=== PATIENT | male | born 1960 | race Caucasian/White ===

== ENCOUNTER 2017-04-13 15:26 | Emergency (ER) | payer SELFPAY ==
[~2017-04-13] VITALS: Ht 182.9 cm; Wt 81.6 kg
[2017-04-13 15:26] VITALS: BP 177/101
[2017-04-13 15:56] LABS: BASO % 1 % (0-3); EOS % 1 % (0-3); HEMATOCRIT 42.8 % (39.0-53.0); HEMOGLOBIN 14.8 g/dL (13.0-17.5); LYMPH # 0.9 x10^3/uL (1.0-4.8); LYMPH % 26 % (24-48); MEAN CORPUSCULAR HEMOGLOBIN 32 pg (25-35); MEAN CORPUSCULAR HGB CONC 35 g/dL (31-37); MEAN CORPUSCULAR VOLUME 92 fL (79-100); MONO % 10 % (0-9); NEUT % 62 % (31-73); PLATELET COUNT 127 x10^3/uL (140-400); RED BLOOD COUNT 4.66 x10^6/uL (4.30-5.70); RED CELL DISTRIBUTION WIDTH 16.1 % (11.5-14.5); WHITE BLOOD COUNT 3.6 x10^3/uL (4.0-11.0)
[2017-04-13] MEDS ORDERED: IV NORMAL SALINE 1000ML BAG 1,000 ML IV ONE (16:00)
--- NOTE | 2017-04-13 16:11 | PHYS DOC ---
Past Medical History Past Medical History: Alcoholism, COPD, Diabetes-Type II, High Cholesterol, Hypertension Past Surgical History: No Surgical History Alcohol Use: Heavy Drug Use: None Adult General Chief Complaint Chief Complaint: ALCOHOL INTOXICATION HPI HPI Patient is a 56 year old male who presents by EMS for alcohol intoxication seeking alcohol rehabilitation/detox. He acknowledges psychosocial stressors of drinking and wants to quit. His last drink was this a.m. He notes prior detox attempts. He denies other complaints at this time. Review of Systems Review of Systems Constitutional: Denies fever or chills [] Eyes: Denies change in visual acuity, redness, or eye pain [] HENT: Denies nasal congestion or sore throat [] Respiratory: Denies cough or shortness of breath [] Cardiovascular: No additional information not addressed in HPI [] GI: Denies abdominal pain, nausea, vomiting, bloody stools or diarrhea [] : Denies dysuria or hematuria [] Musculoskeletal: Denies back pain or joint pain [] Integument: Denies rash or skin lesions [] Neurologic: Denies headache, focal weakness or sensory changes [] Endocrine: Denies polyuria or polydipsia [] Current Medications Current Medications Current Medications Medications (Trade) Dose Ordered Sig/Kalyn Start Time Stop Time Status Last Admin Dose Admin Sodium Chloride 1,000 ml @ 1,000 mls/hr 1X ONCE 04/13/17 16:00 04/13/17 16:59 DC 04/13/17 16:09 1,000 MLS/HR Allergies Allergies Allergies Coded Allergies Type Severity Reaction Last Updated Verified No Known Drug Allergies 04/13/17 No Physical Exam Physical Exam Constitutional: Well developed, well nourished, no acute distress, non-toxic appearance. [] HENT: Normocephalic, atraumatic, bilateral external ears normal, oropharynx moist, no oral exudates, nose normal. [] Eyes: PERRLA, EOMI, conjunctiva normal, no discharge. [] Neck: Normal range of motion, supple. [] Cardiovascular:Heart rate regular rhythm [] Lungs & Thorax: Bilateral breath sounds clear to auscultation [] Abdomen: Bowel sounds normal, soft, no tenderness. [] Skin: Warm, dry, no erythema, no rash. [] Back: Normal ROM. [] Extremities: No tenderness, ROM intact, no edema. [] Neurologic: Alert and oriented X 3, normal motor function, normal sensory function, no focal deficits noted. [] Psychologic: Affect normal, judgement normal, mood normal. [] Current Patient Data Vital Signs Vital Signs Date Time Temp Pulse Resp B/P (MAP) Pulse Ox O2 Delivery O2 Flow Rate FiO2 04/13/17 15:26 98.6 111 20 177/101 (126) 92 Room Air 98.6 Lab Values Laboratory Tests Test 04/13/17 15:30 04/13/17 16:30 White Blood Count 3.6 x10^3/uL (4.0-11.0) L Red Blood Count 4.66 x10^6/uL (4.30-5.70) Hemoglobin 14.8 g/dL (13.0-17.5) Hematocrit 42.8 % (39.0-53.0) Mean Corpuscular Volume 92 fL (79-100) Mean Corpuscular Hemoglobin 32 pg (25-35) Mean Corpuscular Hemoglobin Concent 35 g/dL (31-37) Red Cell Distribution Width 16.1 % (11.5-14.5) H Platelet Count 127 x10^3/uL (140-400) L Neutrophils (%) (Auto) 62 % (31-73) Lymphocytes (%) (Auto) 26 % (24-48) Monocytes (%) (Auto) 10 % (0-9) H Eosinophils (%) (Auto) 1 % (0-3) Basophils (%) (Auto) 1 % (0-3) Neutrophils # (Auto) 2.3 x10^3uL (1.8-7.7) Lymphocytes # (Auto) 0.9 x10^3/uL (1.0-4.8) L Monocytes # (Auto) 0.4 x10^3/uL (0.0-1.1) Eosinophils # (Auto) 0.0 x10^3/uL (0.0-0.7) Basophils # (Auto) 0.0 x10^3/uL (0.0-0.2) Sodium Level 136 mmol/L (136-145) Potassium Level 3.6 mmol/L (3.5-5.1) Chloride Level 94 mmol/L (98-107) L Carbon Dioxide Level 25 mmol/L (21-32) Anion Gap 17 (6-14) H Blood Urea Nitrogen 18 mg/dL (8-26) Creatinine 1.1 mg/dL (0.7-1.3) Estimated GFR (Cockcroft-Gault) 69.0 Glucose Level 186 mg/dL (70-99) H Calcium Level 8.7 mg/dL (8.5-10.1) Ethyl Alcohol Level 288 mg/dL (0-10) H Urine Opiates Screen Neg (NEG) Urine Methadone Screen Neg (NEG) Urine Barbiturates Neg (NEG) Urine Phencyclidine Screen Neg (NEG) Urine Amphetamine/Methamphetamine Neg (NEG) Urine Benzodiazepines Screen Neg (NEG) Urine Cocaine Screen Neg (NEG) Urine Cannabinoids Screen Neg (NEG) Urine Ethyl Alcohol Pos (NEG) Laboratory Tests 04/13/17 15:30 Laboratory Tests 04/13/17 15:30 Course & Med Decision Making Course & Med Decision Making Pertinent Labs and Imaging studies reviewed. (See chart for details) Other than elevated alcohol level, laboratory evaluation is unremarkable. PAT has seen and evaluated him. There are no detox beds available at this time. Resources have been provided to follow-up with detox facilities tomorrow. He will be prescribed Librium in anticipation of detox facility admission for alcohol withdrawal. Instructed him not to use this prescription outside of detox facility. Return precautions given. He understands and agrees with plan. Dragon Disclaimer Dragon Disclaimer This electronic medical record was generated, in whole or in part, using a voice recognition dictation system. Departure Departure Impression: Primary Impression: Alcohol intoxication Disposition: 01 HOME, SELF-CARE Condition: STABLE Referrals: NO PCP (PCP) Patient Instructions: Alcohol Intoxication, [id number] Additional Instructions: You have been supplied resources for substance abuse facility. Please follow up with substance abuse facility for help with alcohol detox. Take Librium at alcohol detox facility, otherwise decrease your alcohol intake gradually. Follow -up with your primary care doctor otherwise. Return for any concerns. Scripts Chlordiazepoxide Hcl (CHLORDIAZEPOXIDE HCL) 10 Mg Capsule 10 MG PO QID Y for ALCOHOL WITHDRAWAL, #12 CAP Prov: Bernardino CALZADA MD 04/13/17 Problem Qualifiers Primary Impression: Alcohol intoxication Complication of substance-induced condition: uncomplicated Qualified Codes: F10.920 - Alcohol use, unspecified with intoxication, uncomplicated Bernardino CALZADA MD Apr 13, 2017 16:11
[2017-04-13 16:17] LABS: CALCIUM 8.7 mg/dL (8.5-10.1); CREATININE 1.1 mg/dL (0.7-1.3); POTASSIUM 3.6 mmol/L (3.5-5.1)
[2017-04-13 16:49] LABS: BARBITURATES NEG (NEG); BENZODIAZEPINES NEG (NEG); CANNABINOIDS NEG (NEG); COCAINE NEG (NEG); METHADONE NEG (NEG); OPIATES NEG (NEG); PHENCYCLIDINE NEG (NEG)
[2017-04-13] MEDS ORDERED: CHLO10CA5 PO (17:31)
== END 2017-04-13 17:51 | disposition home or self-care (01) ==
LOC: ER 15:26
DX: F10.129 Alcohol abuse with intoxication, unspecified (principal); E11.9 Type 2 diabetes mellitus without complications; E78.00 Pure hypercholesterolemia, unspecified; J44.9 Chronic obstructive pulmonary disease, unspecified; I10 Essential (primary) hypertension
CPT/HCPCS: 36415; 80048; 80305; 80320; 85027; 96360; 99284; J7030; G0480; G0481

== ENCOUNTER 2017-06-05 00:23 | Emergency (ER) | payer SELFPAY ==
[~2017-06-05] VITALS: Ht 182.9 cm; Wt 81.6 kg
[2017-06-05 00:23] VITALS: BP 154/92
[~2017-06-05 00:23] MED LIST: CHLO10CA5 PO
[2017-06-05 00:56] LABS: BASO % 1 % (0-3); EOS % 2 % (0-3); HEMATOCRIT 39.4 % (39.0-53.0); HEMOGLOBIN 13.8 g/dL (13.0-17.5); LYMPH # 1.4 x10^3/uL (1.0-4.8); LYMPH % 19 % (24-48); MEAN CORPUSCULAR HEMOGLOBIN 33 pg (25-35); MEAN CORPUSCULAR HGB CONC 35 g/dL (31-37); MEAN CORPUSCULAR VOLUME 93 fL (79-100); MONO % 13 % (0-9); NEUT % 65 % (31-73); PLATELET COUNT 154 x10^3/uL (140-400); RED BLOOD COUNT 4.23 x10^6/uL (4.30-5.70); RED CELL DISTRIBUTION WIDTH 15.8 % (11.5-14.5); WHITE BLOOD COUNT 7.2 x10^3/uL (4.0-11.0)
[2017-06-05] MEDS ORDERED: MULTIVIT INFUSN,ADULT 4,VIT K 10 ML, FOLIC ACID 1 MG, THIAMINE 100 MG in IV NORMAL SALI... IV ONE (01:00)
--- NOTE | 2017-06-05 01:10 | RAD ---
EXAM: CT head without contrast HISTORY: 56-year-old male with seizure, post alcohol withdrawal. COMPARISON: None. TECHNIQUE: Computed tomographic images of the head were obtained without contrast. RS compliance statement: One or more of the following individualized dose reduction techniques were utilized for this examination: 1. Automated exposure control 2. Adjustment of the mA and/or kV according to patient size 3. Use of iterative reconstruction technique FINDINGS: There is no acute intracranial process identified. Specifically, there are no intracranial blood products, extra-axial fluid collections, mass effect or midline shift. Ventricles and basilar cisterns are maintained. Mild cerebral atrophy is present, with resulting prominence of the sulci and ventricles. The visualized portions of the orbits, paranasal sinuses and mastoid air cells are unremarkable. No suspicious calvarial lesion is seen. IMPRESSION: No acute intracranial findings. Electronically signed by: Susan Paige MD (06/05/2017 1:07 AM) [facility]
[2017-06-05 01:13] LABS: CALCIUM 7.6 mg/dL (8.5-10.1); CREATININE 1.4 mg/dL (0.7-1.3); GFR 52.2; POTASSIUM 3.2 mmol/L (3.5-5.1)
[2017-06-05 01:19] LABS: ALBUMIN 3.3 g/dL (3.4-5.0); ALBUMIN/GLOBULIN RATIO 0.9 (1.0-1.7); MAGNESIUM 0.7 mg/dL (1.8-2.4); TOTAL BILIRUBIN 0.6 mg/dL (0.2-1.0); TOTAL PROTEIN 7.1 g/dL (6.4-8.2)
[2017-06-05 02:00] LABS: BILIRUBIN,URINE NEGATIVE (NEG); GLUCOSE,URINE NEGATIVE (NEG); NITRITE,URINE NEGATIVE (NEG); PH,URINE 7.5; PROTEIN,URINE >=300 mg/dL (NEG-TRACE); UROBILINOGEN,URINE 0.2 mg/dL (0.2 mg/dL)
[2017-06-05 02:08] LABS: BARBITURATES NEG (NEG); BENZODIAZEPINES NEG (NEG); CANNABINOIDS NEG (NEG); COCAINE NEG (NEG); METHADONE NEG (NEG); OPIATES NEG (NEG); PHENCYCLIDINE NEG (NEG)
[2017-06-05 02:20] LABS: BACTERIA,URINE 0 /HPF (0-FEW); RBC,URINE OCC /HPF (0-2); SQUAMOUS EPITHELIAL CELL,UR FEW /LPF; WBC,URINE OCC /HPF (0-4)
--- NOTE | 2017-06-05 02:54 | PHYS DOC ---
Past Medical History Past Medical History: Alcoholism, COPD, Diabetes-Type II, High Cholesterol, Hypertension Past Surgical History: No Surgical History Alcohol Use: Heavy Additional Information: PT REPORTS HE HAS NOT HAD A DRINK IN THE LAST 6 DAYS. Drug Use: None Adult General Chief Complaint Chief Complaint: SEIZURE HPI HPI Patient is a 56 year old gentleman who presents to the ER today secondary to a seizure was witnessed by his . Patient has a history significant for diabetes and hypertension. Patient is a history of high cholesterol and COPD. Patient denies any liver kidney problems. Patient denies any prior seizures in the past. Patient denies any drug use. Patient reports he is not allergic to any medications. Patient reports he does smoke. She reports that he is a heavy alcoholic. Patient reports he is attempting to detox himself at this time. Patient reports his last drink was 6 days ago. Patient reports that he has had episodes of withdrawal symptoms in the past but has never had any seizures. Patient denies any fevers shakes chills nausea vomiting or diarrhea. Patient has any abdominal pain chest pain or short of breath. Patient reports that he does use inhalers for his asthma. Patient reports that he lives with his . Patient reports that he's been having tremors over the last couple days which is not unusual for him. Review of systems: Constitutional: Denies fever or chills Eyes: Denies change in visual acuity, redness, or eye pain HENT: Denies nasal congestion or sore throat All other review systems are negative except as documented in the history of present illness portion. Physical exam: Constitutional: Well developed, well nourished, no acute distress, non-toxic appearance. Patient does have a resting hand tremor HENT: Normocephalic, atraumatic, bilateral external ears normal, Eyes: EOMI, conjunctiva normal, no discharge. No tongue fasciculations Neck: Normal range of motion, no tenderness, supple, no stridor. Cardiovascular: Regular rate tachycardic to 105 Lungs & Thorax: Bilateral breath sounds clear to auscultation no wheezing rales or rhonchi Abdomen: Bowel sounds normal, soft, no tenderness, Skin: Warm, dry, no erythema, no rash. No diaphoresis Back: No tenderness, no CVA tenderness. Extremities: ROM intact, no edema. Neurologic: Alert and oriented X 3, normal motor function, normal sensory function, no focal deficits noted. Normal gait. Normal cerebellar exam. Patient does have a resting tremor. Psychologic: Affect normal, judgement normal, mood normal. Patient's evaluation in the ER was significant for a resting tremor. Patient is tachycardic upon arrival. Patient is alert awake and oriented 3. Does not appear to be postictal at this time. Patient has no tongue bite. Patient not lose bowel or bladder function. Patient denies any head trauma. 0130 patient reports he feels much improved. Patient was given Ativan in the ED as well as IV fluids. Patient reports it is resting tremor has improved significantly. Patient is requesting to be discharged. I have discussed with the patient the plan to admit him for further evaluation of his seizures and his alcohol withdrawal. Patient is refusing admission. Patient has agreed to stay in the ER for an additional hour for me to continue watching him however he will sign out AGAINST MEDICAL ADVICE after that. Patient's CT scan of his head reveals no acute pathology. Patient's lab workup in ER has been unremarkable. Patient is slightly hypermobile anemic and hypomagnesemia. Patient has received IV fluids through a banana bag as well as Ativan in the ER. Patient reports that he does not want assistance with detox. Patient reports that he's had multiple episodes of unsuccessful detox in the past and is greatest excesses when he doesn't on his own. We did have the psychiatric assessment team evaluate him and they did give him resources. Patient was again has declined any assistance from us regarding his detox. 0250 patient is standing at the doorway requesting to be discharged. Patient once again is refusing admission to the hospital. I did discuss with the patient my concern with his new onset seizures, his alcohol withdrawal, my concern that he might fall and hurt himself. Patient is alert awake and oriented 3 currently. Patient has capacity for medical decision making. Patient is competent to make his own decisions at this time. We will allow him to make his own decision to sign out AGAINST MEDICAL ADVICE. We will respect his autonomy and allow him to be discharged AGAINST MEDICAL ADVICE. Patient understands that he may return at any time for further assistance. Patient lives with his and he reports that his . Benign. Assessment and plan Alcohol withdrawal with seizures. Patient monitored in the ER for several hours with some improvement in his symptoms. I have recommended admission to the patient however he is refusing. Patient will be discharged AGAINST MEDICAL ADVICE and was instructed to return to the ER a few changes mind. Patient has been given instructions and resources for alcohol resources. Current Medications Current Medications Current Medications Medications (Trade) Dose Ordered Sig/Kalyn Start Time Stop Time Status Last Admin Dose Admin Lorazepam (Ativan) 2 mg 1X ONCE 06/05/17 01:00 06/05/17 01:01 DC 06/05/17 01:05 2 MG Multivitamins 10 ml/Folic Acid 1 mg/Thiamine HCl 100 mg/Sodium Chloride 1,011.2 ml @ 1,000 mls/ hr 1X ONCE 06/05/17 01:00 06/05/17 02:00 DC 06/05/17 01:18 1,000 MLS/HR Allergies Allergies Allergies Coded Allergies Type Severity Reaction Last Updated Verified No Known Drug Allergies 04/13/17 No Current Patient Data Vital Signs Vital Signs Date Time Temp Pulse Resp B/P (MAP) Pulse Ox O2 Delivery O2 Flow Rate FiO2 06/05/17 00:23 99.2 117 16 154/92 (112) 100 Room Air 99.2 Lab Values Laboratory Tests Test 06/05/17 00:45 06/05/17 01:51 White Blood Count 7.2 x10^3/uL (4.0-11.0) Red Blood Count 4.23 x10^6/uL (4.30-5.70) L Hemoglobin 13.8 g/dL (13.0-17.5) Hematocrit 39.4 % (39.0-53.0) Mean Corpuscular Volume 93 fL (79-100) Mean Corpuscular Hemoglobin 33 pg (25-35) Mean Corpuscular Hemoglobin Concent 35 g/dL (31-37) Red Cell Distribution Width 15.8 % (11.5-14.5) H Platelet Count 154 x10^3/uL (140-400) Neutrophils (%) (Auto) 65 % (31-73) Lymphocytes (%) (Auto) 19 % (24-48) L Monocytes (%) (Auto) 13 % (0-9) H Eosinophils (%) (Auto) 2 % (0-3) Basophils (%) (Auto) 1 % (0-3) Neutrophils # (Auto) 4.7 x10^3uL (1.8-7.7) Lymphocytes # (Auto) 1.4 x10^3/uL (1.0-4.8) Monocytes # (Auto) 1.0 x10^3/uL (0.0-1.1) Eosinophils # (Auto) 0.1 x10^3/uL (0.0-0.7) Basophils # (Auto) 0.0 x10^3/uL (0.0-0.2) Sodium Level 135 mmol/L (136-145) L Potassium Level 3.2 mmol/L (3.5-5.1) L Chloride Level 94 mmol/L (98-107) L Carbon Dioxide Level 27 mmol/L (21-32) Anion Gap 14 (6-14) Blood Urea Nitrogen 22 mg/dL (8-26) Creatinine 1.4 mg/dL (0.7-1.3) H Estimated GFR (Cockcroft-Gault) 52.2 BUN/Creatinine Ratio 16 (6-20) Glucose Level 128 mg/dL (70-99) H Calcium Level 7.6 mg/dL (8.5-10.1) L Magnesium Level 0.7 mg/dL (1.8-2.4) L Total Bilirubin 0.6 mg/dL (0.2-1.0) Aspartate Amino Transferase (AST) 114 U/L (15-37) H Alanine Aminotransferase (ALT) 106 U/L (16-63) H Alkaline Phosphatase 73 U/L (46-116) Total Protein 7.1 g/dL (6.4-8.2) Albumin 3.3 g/dL (3.4-5.0) L Albumin/Globulin Ratio 0.9 (1.0-1.7) L Lipase 352 U/L (73-393) Ethyl Alcohol Level < 10 mg/dL (0-10) Urine Collection Type Unknown Urine Color Yellow Urine Clarity Clear Urine pH 7.5 Urine Specific [place] 1.015 Urine Protein >=300 mg/dL (NEG-TRACE) Urine Glucose (UA) Negative mg/dL (NEG) Urine Ketones (Stick) Negative mg/dL (NEG) Urine Blood Large (NEG) Urine Nitrite Negative (NEG) Urine Bilirubin Negative (NEG) Urine Urobilinogen Dipstick 0.2 mg/dL (0.2 mg/dL) Urine Leukocyte Esterase Negative (NEG) Urine RBC Occ /HPF (0-2) Urine WBC Occ /HPF (0-4) Urine Squamous Epithelial Cells Few /LPF Urine Bacteria 0 /HPF (0-FEW) Urine Hyaline Casts Few /HPF Urine Opiates Screen Neg (NEG) Urine Methadone Screen Neg (NEG) Urine Barbiturates Neg (NEG) Urine Phencyclidine Screen Neg (NEG) Urine Amphetamine/Methamphetamine Neg (NEG) Urine Benzodiazepines Screen Neg (NEG) Urine Cocaine Screen Neg (NEG) Urine Cannabinoids Screen Neg (NEG) Urine Ethyl Alcohol Neg (NEG) Laboratory Tests 06/05/17 00:45 Laboratory Tests 06/05/17 00:45 EKG EKG [] Radiology/Procedures Radiology/Procedures [] Course & Med Decision Making Course & Med Decision Making Pertinent Labs and Imaging studies reviewed. (See chart for details) [] Dragon Disclaimer Dragon Disclaimer This electronic medical record was generated, in whole or in part, using a voice recognition dictation system. Departure Departure Impression: Primary Impression: Alcohol withdrawal Additional Impressions: Seizures Hypokalemia Hypomagnesemia Left against medical advice Disposition: 01 HOME, SELF-CARE Condition: IMPROVED Referrals: NO PCP (PCP) Patient Instructions: Alcohol Withdrawal, Chronic Alcoholism, Discharge Against Medical Advice, Epilepsy Additional Instructions: Please return to the ER if he should change her mind about wanting to be admitted and getting further treatment for your alcoholism. And seizures Problem Qualifiers MC ELLIS MD Jun 05, 2017 02:54
--- NOTE | 2017-06-05 14:48 | EKG ---
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
== END 2017-06-05 03:00 | disposition home or self-care (01) ==
LOC: ER 00:23
DX: R56.9 Unspecified convulsions (principal); F10.239 Alcohol dependence with withdrawal, unspecified; E87.6 Hypokalemia; E83.42 Hypomagnesemia; R00.0 Tachycardia, unspecified; E11.9 Type 2 diabetes mellitus without complications; I10 Essential (primary) hypertension; J44.9 Chronic obstructive pulmonary disease, unspecified; E78.00 Pure hypercholesterolemia, unspecified; F17.200 Nicotine dependence, unspecified, uncomplicated; Z79.899 Other long term (current) drug therapy
CPT/HCPCS: 36415; 70450; 80053; 80307; 81001; 83690; 83735; 85025; 93005; 96365; 96375; 99285; G0480; J2060; J7030; G0479

== ENCOUNTER 2017-08-13 08:59 | Emergency (ER) | payer SELFPAY ==
--- NOTE | 2017-08-13 09:42 | RAD ---
CT scan of the head without contrast 08/13/2017 Clinical History: Seizure. Technique: Unenhanced, contiguous, 5 mm axial sections were obtained through the head. One or more of the following individualized dose reduction techniques were utilized for this study: 1. Automated exposure control. 2. Adjustment of the mA and/or kV according to patient size. 3. Use of iterative reconstruction technique. Findings: Comparison study is dated 06/05/2017 There is generalized parenchymal atrophy. Small scattered areas of decreased attenuation are seen within the periventricular and subcortical white matter of both cerebral hemispheres consistent with areas of small vessel ischemic disease. No acute parenchymal abnormality is seen. No extra-axial fluid collection is noted. No skull fracture is seen. Moderate mucosal thickening is seen involving the left maxillary sinus. Impression: No acute intracranial abnormality is seen.
--- NOTE | 2017-08-13 09:56 | RAD ---
AP portable chest radiograph 08/13/2017 Clinical History: Weakness. An AP portable erect digital radiograph of the chest was obtained. Comparison study is dated 02/22/2009. The cardiac silhouette is normal in size. The thoracic aorta is minimally tortuous. A 2 cm calcified granuloma overlies the right lower lobe, unchanged. No acute pulmonary infiltrate is seen. No pleural effusion or pneumothorax is noted. Degenerative changes are seen involving the thoracic spine and both shoulders. Impression: No acute abnormality is seen.
[2017-08-13 11:08] VITALS: BP 155/89
--- NOTE | 2017-08-13 11:14 | ED.ADGEN ---
Past Medical History Past Medical History: Alcoholism, COPD, Diabetes-Type II, High Cholesterol, Hypertension Past Surgical History: No Surgical History Alcohol Use: Heavy Drug Use: None Adult General Chief Complaint Chief Complaint: WITHDRAWL HPI HPI Patient is a 56 year old man, history of type 2 diabetes mellitus, hypertension , hyperlipidemia, alcohol addiction, with history of withdrawal seizures, who presents to the emergency department after a witnessed seizure. Patient states he stopped drinking 3 days ago because "I'm tired of all of this", states that he is attempting to detox on his own. He states that he is not interested in being admitted to the hospital, states "I can do this on my own". Patient lives at bedside. She states that she heard him "making a snoring noise", states he has not slept in 3 days, states she came in to the ROM, she noted that he was lying on the bed, and was "shaking and had his eyes rolled back", consistent with previous withdrawal seizures. EMS was then called, upon tiredness arrival, patient was slightly postictal, this time he is alert a and O 4. Patient noted be hypoxic on room air, 88%, placed on 2 L nasal cannula with oxygen saturations in the mid 90s, patient states that he isn't experiencing cough and congestion over the past several days as well. He denies any fevers or chills, any numbness weakness or tingling, any headache, states he has had some vomiting but denies any abdominal pain, any injuries. Patient states here members coughing, and then "I don't remember what happened after that", this occurred just before the patient's witnessed him having a seizure. His last episode of alcohol withdrawal seizures was "years ago". Patient states he has not had any other seizures except for from alcohol withdrawal. Review of Systems Review of Systems Constitutional: Denies fever or chills. [] Eyes: Denies change in visual acuity. [] HENT: Denies nasal congestion or sore throat. [] Respiratory: Denies cough or shortness of breath. [] Cardiovascular: Denies chest pain or edema. [] GI: Denies abdominal pain, bloody stools or diarrhea. Nausea and vomiting 3 days.] : Denies dysuria. [] Musculoskeletal: Denies back pain or joint pain. [] Integument: Denies rash. [] Neurologic: Denies headache, focal weakness or sensory changes. Witnessed seizure activity.[] Endocrine: Denies polyuria or polydipsia. [] Lymphatic: Denies swollen glands. [] Psychiatric: Denies depression or anxiety. [] Current Medications Current Medications Current Medications Medications (Trade) Dose Ordered Sig/Kalyn Start Time Stop Time Status Last Admin Dose Admin Diazepam (Valium) 10 mg PRN Q5MIN PRN 08/13/17 09:15 Multivitamins 10 ml/Thiamine HCl 100 mg/Folic Acid 1 mg/Sodium Chloride 1,011.2 ml @ 100 mls/ hr DAILY 08/14/17 09:00 08/18/17 19:07 08/13/17 09:37 100 MLS/HR Allergies Allergies Allergies Coded Allergies Type Severity Reaction Last Updated Verified No Known Drug Allergies 04/13/17 No Physical Exam Physical Exam Constitutional: Well developed, well nourished, no acute distress, non-toxic appearance. Nasal cannula in place.[] HENT: Normocephalic, atraumatic, bilateral external ears normal, oropharynx moist, no oral exudates, nose normal. [] Eyes: PERRLA, EOMI, conjunctiva normal, no discharge. [] Neck: Normal range of motion, no tenderness, supple, no stridor. [] Cardiovascular:, Tachycardic, S1, S2, rubs or gallops.[] Lungs & Thorax: Diminished breath sounds at bases bilaterally, no rhonchi or rales. No wheezing. Abdomen: Bowel sounds normal, soft, obese, no rebound, rigidity, no guarding no tenderness, no masses, no pulsatile masses. [] Skin: Warm, dry, no erythema, no rash. [] Back: No tenderness, no CVA tenderness. [] Extremities: No tenderness, no cyanosis, no clubbing, ROM intact, no edema. Negative Homans sign.[] Neurologic: Alert and oriented X 3, normal motor function, normal sensory function, no focal deficits noted. [] Psychologic: Affect normal, judgement normal, mood normal. [] Current Patient Data Vital Signs Vital Signs Date Time Temp Pulse Resp B/P (MAP) Pulse Ox O2 Delivery O2 Flow Rate FiO2 08/13/17 09:14 99.2 136 16 154/92 (112) 89 Room Air 99.2 EKG EKG EC: Sinus tachycardia, heart rate 135 beats/minute, left axis deviation with right bundle branch block noted, right ventricular hypertrophy with hyperpolarization abnormality noted, contour normality is noted in the inferior and in the anterior leads, QTc of 494, IA of 76, QRS of 132, abnormal ECG, does not meet STEMI criteria.[] Radiology/Procedures Radiology/Procedures [][address] [address] IMAGING REPORT Signed PATIENT: DAVID LEON ACCOUNT: [id number] : 1960 LOCATION: ER AGE: 56 SEX: M EXAM STATUS: REG ER ORD. PHYSICIAN: MIKKI SAGASTUME DO REASON: SEIZURE, WEAKNESS PROCEDURE: CHEST AP ONLY AP portable chest radiograph 08/13/2017 Clinical History: Weakness. An AP portable erect digital radiograph of the chest was obtained. Comparison study is dated 02/22/2009. The cardiac silhouette is normal in size. The thoracic aorta is minimally tortuous. A 2 cm calcified granuloma overlies the right lower lobe, unchanged. No acute pulmonary infiltrate is seen. No pleural effusion or pneumothorax is noted. Degenerative changes are seen involving the thoracic spine and both shoulders. Impression: No acute abnormality is seen. DICTATED and SIGNED BY: DELIO ELKINS MD DATE: 08/13/17 0950 CC: MIKKI SAGASTUME DO; NO PCP ~ Impressions: [address] [id number] IMAGING REPORT Signed PATIENT: DAVID LEON ACCOUNT: [id number] : 1960 LOCATION: ER AGE: 56 SEX: M EXAM STATUS: PRE ER ORD. PHYSICIAN: MIKKI SAGASTUME DO REASON: SZ/EtOH abuse PROCEDURE: CT HEAD WO CONTRAST CT scan of the head without contrast 08/13/2017 Clinical History: Seizure. Technique: Unenhanced, contiguous, 5 mm axial sections were obtained through the head. One or more of the following individualized dose reduction techniques were utilized for this study: 1. Automated exposure control. 2. Adjustment of the mA and/or kV according to patient size. 3. Use of iterative reconstruction technique. Findings: Comparison study is dated 06/05/2017 There is generalized parenchymal atrophy. Small scattered areas of decreased attenuation are seen within the periventricular and subcortical white matter of both cerebral hemispheres consistent with areas of small vessel ischemic disease. No acute parenchymal abnormality is seen. No extra-axial fluid collection is noted. No skull fracture is seen. Moderate mucosal thickening is seen involving the left maxillary sinus. Impression: No acute intracranial abnormality is seen. DICTATED and SIGNED BY: DELIO ELKINS MD DATE: 08/13/17 0936 CC: MIKKI SAGASTUME DO; NO PCP ~ Course & Med Decision Making Course & Med Decision Making Pertinent Labs and Imaging studies reviewed. (See chart for details) Lengthy discussion at bedside with patient and . Patient is adamant that he is going to leave the emergency department, states "I can't afford to be admitted". I discussed with patient at length in detail my concerns about his hypoxia, and concern for recurrent seizure, states that he is high risk for morbidity, or mortality, including stroke, recurrent seizure, and . Patient 's reiterates my concerns, patient states that he fully understands the concerns, understand that he is at risk for significant injury or even , states "I will be fine", states" I've done this before and I will do it again. Patient's heart rate is now in the 90s, he has not had further seizure activity in the ED but has received Valium, and I discussed with him that the benzodiazepine will wear off, and the long-term chemical effects of alcohol abuse in the brain and other organs. Patient states that he understands, all these concerns, but again is alert and oriented 4, is calm and cooperative, appropriate in his responses, and therefore AMA paperwork was completed with nurse Reza, and patient did exit the emergency Department with his AGAINST MEDICAL ADVICE, with precautions and instructions he can return to the emergency department any time. Dragon Disclaimer Dragon Disclaimer This electronic medical record was generated, in whole or in part, using a voice recognition dictation system. Departure Impression: Primary Impression: Left against medical advice Additional Impressions: Alcohol withdrawal Alcohol withdrawal seizure Disposition: 07 AGAINST MEDICAL ADVICE Condition: STABLE Problem Qualifiers MIKKI SAGASTUME DO Aug 13, 2017 11:14
--- NOTE | 2017-08-13 12:24 | EKG ---
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
[2017-08-14] MEDS ORDERED: MULTIVIT INFUSN,ADULT 4,VIT K 10 ML, THIAMINE 100 MG, FOLIC ACID 1 MG in IV NORMAL SALI... IV SCH (09:00)
== END 2017-08-13 11:09 | disposition left against medical advice (07) ==
LOC: ER 08:59
DX: F10.239 Alcohol dependence with withdrawal, unspecified (principal); R56.9 Unspecified convulsions; R09.02 Hypoxemia; J44.9 Chronic obstructive pulmonary disease, unspecified; E11.9 Type 2 diabetes mellitus without complications; E78.00 Pure hypercholesterolemia, unspecified; I10 Essential (primary) hypertension; E78.5 Hyperlipidemia, unspecified
CPT/HCPCS: 70450; 71010; 93005; 96365; 96366; 96375; 99285; J3360; J7030

== ENCOUNTER 2018-01-26 20:03 | Inpatient (IN) | payer SELFPAY ==
[2018-01-26 20:30] LABS: ADD MAN DIFF? NO
[2018-01-26] MEDS ORDERED: 0.9 % SODIUM CHLORIDE 10 ML DISP.SYRIN. IV (20:30)
[2018-01-26 20:32] LABS: BASO % 0 % (0-3); EOS % 0 % (0-3); HEMATOCRIT 40.8 % (39.0-53.0); HEMOGLOBIN 13.9 g/dL (13.0-17.5); LYMPH # 0.6 x10^3/uL (1.0-4.8); LYMPH % 12 % (24-48); MEAN CORPUSCULAR HEMOGLOBIN 32 pg (25-35); MEAN CORPUSCULAR HGB CONC 34 g/dL (31-37); MEAN CORPUSCULAR VOLUME 94 fL (79-100); MONO # 0.8 x10^3/uL (0.0-1.1); MONO % 16 % (0-9); NEUT # 3.6 x10^3uL (1.8-7.7); NEUT % 72 % (31-73); PLATELET COUNT 136 x10^3/uL (140-400); RED BLOOD COUNT 4.34 x10^6/uL (4.30-5.70); RED CELL DISTRIBUTION WIDTH 14.2 % (11.5-14.5); WHITE BLOOD COUNT 4.9 x10^3/uL (4.0-11.0)
[2018-01-26] MEDS: ONDANSETRON PF 4 MG/2 ML VIAL. IV (20:35)
[2018-01-26] MEDS: IV NORMAL SALINE 1000ML BAG 1,000 ML IV (20:35)
[2018-01-26] MEDS: FAMOTIDINE 20 MG/2 ML VIAL IVP (20:35)
[2018-01-26 20:43] LABS: ANION GAP 24 (6-14); BLOOD UREA NITROGEN 24 mg/dL (8-26); CALCIUM 8.7 mg/dL (8.5-10.1); CARBON DIOXIDE 19 mmol/L (21-32); CHLORIDE 89 mmol/L (98-107); CREATININE 1.3 mg/dL (0.7-1.3); GFR 56.7; GLUCOSE 114 mg/dL (70-99); POTASSIUM 3.6 mmol/L (3.5-5.1); SODIUM 132 mmol/L (136-145)
[2018-01-26] MEDS: MULTIVIT INFUSN,ADULT 4,VIT K 10 ML, THIAMINE 100 MG, FOLIC ACID 1 MG in IV NORMAL SALI... IV (20:45)
[2018-01-26 20:47] LABS: ACETAMIN < 2 mcg/ml (10-30); ETHANOL 16 mg/dL (0-10); SALIC 3.7 mg/dL (2.8-20.0)
[2018-01-26 20:49] LABS: ALBUMIN 3.3 g/dL (3.4-5.0); ALK PHOS 80 U/L (46-116); ALT (SGPT) 134 U/L (16-63); AST (SGOT) 143 U/L (15-37); DIRECT BILIRUBIN 0.4 mg/dL (0.0-0.2); LIPASE 337 U/L (73-393); MAGNESIUM 1.3 mg/dL (1.8-2.4); TOTAL BILIRUBIN 1.1 mg/dL (0.2-1.0); TOTAL PROTEIN 7.3 g/dL (6.4-8.2)
[2018-01-26 20:51] LABS: TROPONINI < 0.017 ng/mL (0.000-0.055)
[2018-01-26 20:57] LABS: CKMB INDEX 1.2 % (0-4); CKMB MASS 3.9 ng/mL (0.0-3.6); CREATINE KINASE 314 U/L (39-308)
[2018-01-26] MEDS ORDERED: CONTRAST GIVEN MC (21:00)
[2018-01-26] MEDS: IOHEXOL 300 MG/ML 100ML VIAL. IV (21:12)
[2018-01-26 21:32] LABS: BILIRUBIN,URINE SMALL (NEG); CLARITY,URINE CLEAR; COLOR,URINE YELLOW; GLUCOSE,URINE NEGATIVE (NEG); NITRITE,URINE NEGATIVE (NEG); PROTEIN,URINE >=300 mg/dL (NEG-TRACE)
[2018-01-26 21:36] LABS: FECAL OB PT NEGATIVE (NEG); NEG OBC FOB NEG; POS OBC FOB POS
[2018-01-26 21:38] LABS: AMPHETAMINE/METHAMPHETAMINE NEG (NEG); BARBITURATES NEG (NEG); BENZODIAZEPINES NEG (NEG); CANNABINOIDS NEG (NEG); COCAINE NEG (NEG); ETHANOL, URINE POS (NEG); METHADONE NEG (NEG); OPIATES NEG (NEG); PHENCYCLIDINE NEG (NEG)
[2018-01-26 21:39] LABS: BACTERIA,URINE 0 /HPF (0-FEW); SQUAMOUS EPITHELIAL CELL,UR OCC /LPF
[2018-01-26 21:40] LABS: HYALINE CASTS, URINE OCCASIONAL /HPF
[2018-01-26] MEDS ORDERED: fentaNYL PF VIAL 100 MCG/2 ML VIAL IV (22:15)
[2018-01-26] MEDS ORDERED: ONDANSETRON PF 4 MG/2 ML VIAL. IV (22:15)
[2018-01-27] MEDS: IV NORMAL SALINE 1000ML BAG 1,000 ML IV ×3 (00:36→16:40)
[2018-01-27 04:58] LABS: ADD MAN DIFF? NO
[2018-01-27 05:08] LABS: BASO % 1 % (0-3); EOS # 0.1 x10^3/uL (0.0-0.7); EOS % 1 % (0-3); HEMATOCRIT 34.9 % (39.0-53.0); HEMOGLOBIN 11.9 g/dL (13.0-17.5); LYMPH # 1.5 x10^3/uL (1.0-4.8); LYMPH % 31 % (24-48); MEAN CORPUSCULAR HEMOGLOBIN 32 pg (25-35); MEAN CORPUSCULAR HGB CONC 34 g/dL (31-37); MEAN CORPUSCULAR VOLUME 94 fL (79-100); MONO # 0.8 x10^3/uL (0.0-1.1); MONO % 17 % (0-9); NEUT # 2.5 x10^3uL (1.8-7.7); NEUT % 51 % (31-73); PLATELET COUNT 116 x10^3/uL (140-400); RED CELL DISTRIBUTION WIDTH 14.4 % (11.5-14.5); WHITE BLOOD COUNT 4.9 x10^3/uL (4.0-11.0)
[2018-01-27 05:25] LABS: ANION GAP 15 (6-14); BLOOD UREA NITROGEN 19 mg/dL (8-26); CALCIUM 7.7 mg/dL (8.5-10.1); CARBON DIOXIDE 23 mmol/L (21-32); CHLORIDE 98 mmol/L (98-107); CREATININE 1.1 mg/dL (0.7-1.3); GFR 68.8; GLUCOSE 69 mg/dL (70-99); POTASSIUM 3.9 mmol/L (3.5-5.1); SODIUM 136 mmol/L (136-145)
[2018-01-27] MEDS ORDERED: FOLIC ACID 1 MG TABLET. PO (09:00)
[2018-01-27] MEDS ORDERED: chlordiazePOXIDE HCL 25 MG CAPSULE PO (09:00)
[2018-01-27] MEDS: MULTIVITAMIN with MINERAL TABLET. PO (09:00)
[2018-01-27] MEDS ORDERED: cloNIDine HCL 0.1 MG TABLET PO (09:00)
[2018-01-27] MEDS ORDERED: ONDANSETRON PF 4 MG/2 ML VIAL. IV (09:00)
[2018-01-27] MEDS ORDERED: THIAMINE IM 200 MG/2 ML VIAL. IM (09:00)
[2018-01-27] MEDS ORDERED: NICOTINE 21MG PATCH. TD (09:00)
[2018-01-27] MEDS: PANTOPRAZOLE 40 MG TABLET.DR. PO (10:26)
[2018-01-27 14:25] LABS: MRSA BY PCR Negative (Negative)
[2018-01-27] MEDS: MULTIVIT INFUSN,ADULT 4,VIT K 10 ML, THIAMINE 100 MG, FOLIC ACID 1 MG in IV DEXTROSE 5 ... IV (20:31)
[2018-01-28] MEDS: ALPRAZolam 0.5 MG TABLET PO (02:15)
[2018-01-28] MEDS: HYDROcodone/APAP 5/325MG 1 TAB TABLET PO (02:15)
[2018-01-28 05:40] LABS: ADD MAN DIFF? NO
[2018-01-28 05:45] LABS: BASO % 0 % (0-3); EOS # 0.1 x10^3/uL (0.0-0.7); EOS % 2 % (0-3); HEMATOCRIT 37.6 % (39.0-53.0); HEMOGLOBIN 12.9 g/dL (13.0-17.5); LYMPH % 21 % (24-48); MEAN CORPUSCULAR HEMOGLOBIN 33 pg (25-35); MEAN CORPUSCULAR HGB CONC 34 g/dL (31-37); MEAN CORPUSCULAR VOLUME 95 fL (79-100); MONO # 0.9 x10^3/uL (0.0-1.1); MONO % 18 % (0-9); NEUT % 59 % (31-73); PLATELET COUNT 124 x10^3/uL (140-400); RED BLOOD COUNT 3.97 x10^6/uL (4.30-5.70); RED CELL DISTRIBUTION WIDTH 14.3 % (11.5-14.5); WHITE BLOOD COUNT 5.1 x10^3/uL (4.0-11.0)
[2018-01-28 06:09] LABS: ANION GAP 10 (6-14); BLOOD UREA NITROGEN 11 mg/dL (8-26); CALCIUM 8.4 mg/dL (8.5-10.1); CARBON DIOXIDE 28 mmol/L (21-32); CHLORIDE 96 mmol/L (98-107); GFR 76.7; GLUCOSE 144 mg/dL (70-99); POTASSIUM 3.3 mmol/L (3.5-5.1); SODIUM 134 mmol/L (136-145)
[2018-01-28] MEDS: MULTIVITAMIN with MINERAL TABLET. PO (08:40)
[2018-01-28] MEDS: PANTOPRAZOLE 40 MG TABLET.DR. PO (08:40)
[2018-01-31] MEDS ORDERED: FOLIC ACID 1 MG TABLET. PO (09:00)
[2018-01-31] MEDS ORDERED: THIAMINE 100 MG TABLET. PO (09:00)
== END 2018-01-28 10:00 | disposition left against medical advice (07) | DRG 377 ==
LOC: ER 20:03 → 5 NORTH 01-27 14:45 → 1 WEST ICU 22:00
DX: K92.0 Hematemesis (principal); N17.0 Acute kidney failure with tubular necrosis; F10.231 Alcohol dependence with withdrawal delirium; D69.6 Thrombocytopenia, unspecified; E83.42 Hypomagnesemia; E87.8 Other disorders of electrolyte and fluid balance, not elsewhere classified; F10.20 Alcohol dependence, uncomplicated; N40.0 Benign prostatic hyperplasia without lower urinary tract symptoms; E78.00 Pure hypercholesterolemia, unspecified; D63.8 Anemia in other chronic diseases classified elsewhere; E11.9 Type 2 diabetes mellitus without complications; E78.5 Hyperlipidemia, unspecified; F17.210 Nicotine dependence, cigarettes, uncomplicated; I10 Essential (primary) hypertension; J44.9 Chronic obstructive pulmonary disease, unspecified; K21.9 Gastro-esophageal reflux disease without esophagitis; K76.0 Fatty (change of) liver, not elsewhere classified; Z82.49 Family history of ischemic heart disease and other diseases of the circulatory system; Z91.19 Patient's noncompliance with other medical treatment and regimen; Z71.41 Alcohol abuse counseling and surveillance of alcoholic
CPT/HCPCS: 36415; 74177; 80048; 80076; 80307; 80329; 81001; 82274; 82553; 83690; 83735; 84484; 85025; 86850; 86900; 86901; 87641; 93005; 96365; 96375; 99285; 99285-25; G0480; J2060; J2405; J7030; Q9967; S0028

== ENCOUNTER 2021-03-29 13:02 | Emergency (ER) | payer SELFPAY ==
[~2021-03-29] VITALS: Ht 185.4 cm; Wt 109.0 kg
[2021-03-29 13:38] LABS: BASO # 0.1 x10^3/uL (0.0-0.2); BASO % 1 % (0-3); EOS # 0.2 x10^3/uL (0.0-0.7); EOS % 3 % (0-3); HEMATOCRIT 39.7 % (39.0-53.0); HEMOGLOBIN 13.6 g/dL (13.0-17.5); LYMPH # 1.9 x10^3/uL (1.0-4.8); LYMPH % 29 % (24-48); MEAN CORPUSCULAR HEMOGLOBIN 31 pg (25-35); MEAN CORPUSCULAR HGB CONC 34 g/dL (31-37); MEAN CORPUSCULAR VOLUME 90 fL (79-100); MONO # 0.7 x10^3/uL (0.0-1.1); MONO % 11 % (0-9); NEUT # 3.5 x10^3/uL (1.8-7.7); NEUT % 55 % (31-73); PLATELET COUNT 535 x10^3/uL (140-400); RED BLOOD COUNT 4.42 x10^6/uL (4.30-5.70); RED CELL DISTRIBUTION WIDTH 16.5 % (11.5-14.5); WHITE BLOOD COUNT 6.4 x10^3/uL (4.0-11.0)
--- NOTE | 2021-03-29 13:44 | RAD ---
INDICATION: Reason: SOA / Spl. Instructions: / History: COMPARISON: August 13, 2017 FINDINGS: Single view of chest obtained. Cardiac silhouette is mildly prominent in size. Calcified nodule at the right lung base again seen. T here is some linear opacities at the bilateral lung bases. IMPRESSION: * Mild linear opacities at lung bases which could be from atelectasis or early infiltrate. Electronically signed by: Srini Diaz MD (03/29/2021 1:41 PM) [id number]
[2021-03-29 13:50] LABS: CALCIUM 9.4 mg/dL (8.5-10.1); CREATININE 1.2 mg/dL (0.7-1.3); GFR 61.6; POTASSIUM 4.8 mmol/L (3.5-5.1)
[2021-03-29 13:57] LABS: ALBUMIN 3.4 g/dL (3.4-5.0); ALBUMIN/GLOBULIN RATIO 0.9 (1.0-1.7); TOTAL BILIRUBIN 0.2 mg/dL (0.2-1.0); TOTAL PROTEIN 7.4 g/dL (6.4-8.2)
--- NOTE | 2021-03-29 14:10 | PHYS DOC ---
Past Medical History Past Medical History: Alcoholism, COPD, Diabetes-Type II, Hypertension, Seizure Additional Past Medical Histor: NONCOMPLIANT Past Surgical History: Other Additional Past Surgical Histo: LEG SX, ANKLE SX, POOR HISTORIAN Smoking Status: Current Every Day Smoker Alcohol Use: Heavy Drug Use: None General Adult EDM: Chief Complaint: ALCOHOL INTOXICATION HPI: HPI: Patient is a 60 year old male with history of COPD on oxygen as needed at home, current smoker, hypertension, diabetes type 2, seizures, alcoholism, who presents to the ED today to be evaluated for shortness of breath. Patient states his significant female partner yesterday, this was a suspicious , police are investigating. Patient states today he got arrested by police for drunk driving, during the arrest he was trying to get out of his vehicle and was accused of assaulting special police officer because he accidentally kicked the officer, he states at that point he had shortness of breath and requested to be brought to the ED. Patient arrives in the ED very talkative, he states he has been drinking since yesterday. Patient also states he smoked a joint. At some point he started crying. He stopped crying at times and starts laughing and talking again. Denies any chest pain. Review of Systems: Review of Systems: Constitutional: Denies fever or chills. [] Eyes: Denies change in visual acuity. [] HENT: Denies nasal congestion or sore throat. [] Respiratory: Reports shortness of breath, and cough Cardiovascular: Denies chest pain or edema. [] GI: Denies abdominal pain, nausea, vomiting, bloody stools or diarrhea. [] : Denies dysuria. [] Musculoskeletal: Denies back pain or joint pain. [] Integument: Denies rash. [] Neurologic: Denies headache, focal weakness or sensory changes. [] Psychiatric: Reports sadness, grief Heart Score: C/O Chest Pain: N/A Risk Factors: Risk Factors: DM, Current or recent (<one month) smoker, HTN, HLP, family history of CAD, obesity. Risk Scores: Score 0 - 3: 2.5% MACE over next 6 weeks - Discharge Home Score 4 - 6: 20.3% MACE over next 6 weeks - Admit for Clinical Observation Score 7 - 10: 72.7% MACE over next 6 weeks - Early Invasive Strategies Allergies: Allergies: Allergies Coded Allergies Type Severity Reaction Last Updated Verified No Known Drug Allergies 04/13/17 No Physical Exam: PE: Constitutional: Well developed, well nourished, no acute distress, non-toxic appearance. [] HENT: Normocephalic, atraumatic, bilateral external ears normal, oropharynx moist, no oral exudates, nose normal. [] Eyes: PERRLA, EOMI, conjunctiva normal, no discharge. [] Neck: Normal range of motion, no tenderness, supple, no stridor. [] Cardiovascular:Heart rate regular rhythm, no murmur [] Lungs & Thorax: Diminished breath sounds to posterior lung bases, patient coughing Abdomen: Bowel sounds normal, soft, no tenderness, no masses, no pulsatile masses. [] Skin: Warm, dry, no erythema, no rash. [] Back: No tenderness, no CVA tenderness. [] Extremities: No tenderness, no cyanosis, no clubbing, ROM intact, no edema. [] Neurologic: Alert and oriented X 3, normal motor function, normal sensory function, no focal deficits noted. [] Psychologic: Appears to have mixed feelings, at times he is sad and crying when he starts talking and laughing. Current Patient Data: Labs: Laboratory Tests Test 03/29/21 13:25 White Blood Count 6.4 x10^3/uL (4.0-11.0) Red Blood Count 4.42 x10^6/uL (4.30-5.70) Hemoglobin 13.6 g/dL (13.0-17.5) Hematocrit 39.7 % (39.0-53.0) Mean Corpuscular Volume 90 fL (79-100) Mean Corpuscular Hemoglobin 31 pg (25-35) Mean Corpuscular Hemoglobin Concent 34 g/dL (31-37) Red Cell Distribution Width 16.5 % (11.5-14.5) H Platelet Count 535 x10^3/uL (140-400) H Neutrophils (%) (Auto) 55 % (31-73) Lymphocytes (%) (Auto) 29 % (24-48) Monocytes (%) (Auto) 11 % (0-9) H Eosinophils (%) (Auto) 3 % (0-3) Basophils (%) (Auto) 1 % (0-3) Neutrophils # (Auto) 3.5 x10^3/uL (1.8-7.7) Lymphocytes # (Auto) 1.9 x10^3/uL (1.0-4.8) Monocytes # (Auto) 0.7 x10^3/uL (0.0-1.1) Eosinophils # (Auto) 0.2 x10^3/uL (0.0-0.7) Basophils # (Auto) 0.1 x10^3/uL (0.0-0.2) Sodium Level 138 mmol/L (136-145) Potassium Level 4.8 mmol/L (3.5-5.1) Chloride Level 100 mmol/L (98-107) Carbon Dioxide Level 26 mmol/L (21-32) Anion Gap 12 (6-14) Blood Urea Nitrogen 14 mg/dL (8-26) Creatinine 1.2 mg/dL (0.7-1.3) Estimated GFR (Cockcroft-Gault) 61.6 BUN/Creatinine Ratio 12 (6-20) Glucose Level 139 mg/dL (70-99) H Calcium Level 9.4 mg/dL (8.5-10.1) Total Bilirubin 0.2 mg/dL (0.2-1.0) Aspartate Amino Transferase (AST) 44 U/L (15-37) H Alanine Aminotransferase (ALT) 50 U/L (16-63) Alkaline Phosphatase 105 U/L (46-116) Troponin I Quantitative 0.018 ng/mL (0.000-0.055) Total Protein 7.4 g/dL (6.4-8.2) Albumin 3.4 g/dL (3.4-5.0) Albumin/Globulin Ratio 0.9 (1.0-1.7) L Ethyl Alcohol Level 236 mg/dL (0-10) H Laboratory Tests 03/29/21 13:25 Laboratory Tests 03/29/21 13:25 EKG: EK interpreted by Dr. Yeung sinus tachycardia heart rate 101 no STEMI [] Radiology/Procedures: Radiology/Procedures: []REASON: SOA PROCEDURE: PORTABLE CHEST 1V INDICATION: Reason: SOA / Spl. Instructions: / History: COMPARISON: August 13, 2017 FINDINGS: Single view of chest obtained. Cardiac silhouette is mildly prominent in size. Calcified nodule at the right lung base again seen. There is some linear opacities at the bilateral lung bases. IMPRESSION: * Mild linear opacities at lung bases which could be from atelectasis or early infiltrate. Electronically signed by: Rufus Diaz MD (03/29/2021 1:41 PM) [id number] DICTATED and SIGNED BY: RUFUS DIAZ MD DATE: 03/29/21 [id number] Course & Med Decision Making: Course & Med Decision Making Shoulder to have any shoulder pertinent Labs and Imaging studies reviewed. (See chart for details) This is a 60-year-old male patient presenting to the ED today complaining of shortness of breath. Patient is being investigated for suspicious of the female partner. See HPI EKG is negative, chest x-ray noted for possible atelectasis on early infiltrate, CBC CMP and troponin with no acute findings. Blood alcohol level was 236. Kathia from [facility] came and talked to patient. It is my understanding he refused any help, he states he has been to rehab many times and it did not work. Patient's work-up is still pending, he requested to be discharged AGAINST ME DICAL ADVICE. He states he wants to go home where he is comfortable. I went to the room and talked to patient in the presence of the RN. Patient at this point was alert oriented x4 able to make his own decisions. Gave him the risk of leaving AMA including and disability. He states he understands the risk but does not want to be in the ED anymore. He stood up and walked away with no difficulties. Wes Disclaimer: Wes Disclaimer: This electronic medical record was generated, in whole or in part, using a voice recognition dictation system. Departure Departure Impression: Primary Impression: Alcohol intoxication Qualified Codes: F10.929 - Alcohol use, unspecified with intoxication, unspecified Additional Impressions: Shortness of breath Marijuana use Smoking addiction Grief Disposition: LEFT AGAINST MEDICAL ADVICE Condition: STABLE Referrals: NO PCP (PCP) ABA JUAREZ APRN Mar 29, 2021 14:10
[2021-03-29 14:12] VITALS: BP 173/84
--- NOTE | 2021-03-29 15:12 | EKG ---
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
== END 2021-03-29 14:37 | disposition left against medical advice (07) ==
LOC: ER 13:02
DX: R06.02 Shortness of breath (principal); F12.90 Cannabis use, unspecified, uncomplicated; F43.21 Adjustment disorder with depressed mood; F10.229 Alcohol dependence with intoxication, unspecified; Y90.7 Blood alcohol level of 200-239 mg/100 ml; J44.9 Chronic obstructive pulmonary disease, unspecified; E11.9 Type 2 diabetes mellitus without complications; I10 Essential (primary) hypertension; F17.200 Nicotine dependence, unspecified, uncomplicated
CPT/HCPCS: 36415; 71045; 80053; 83880; 84484; 85025; 93005; 99285; G0480